=== PATIENT | male | born 1970 | race Caucasian/White ===

== ENCOUNTER 2019-07-30 21:06 | Emergency (ER) | payer OTHER ==
[~2019-07-30] VITALS: Ht 172.7 cm; Wt 90.7 kg
[2019-07-30] MEDS ORDERED: TENORMIN25 MG (21:14)
[2019-07-30] MEDS ORDERED: CLONAZEPAM1 MG (21:14)
== END 2019-07-31 11:59 | disposition home or self-care (01) ==
LOC: ER 21:06 → EDBD 21:38 → ER 21:38
DX: I87.2 Venous insufficiency (chronic) (peripheral) (principal); M79.661 Pain in right lower leg

== ENCOUNTER 2023-08-25 05:45 | Day surgery (SDC) | payer OTHER ==
[2023-08-22 09:52] LABS: HEMATOCRIT 46.1 % (39.0-48.0); HEMOGLOBIN 16.2 g/dL (13-16.00); MEAN CELL VOLUME 87.8 fL (80.0-100.00); MEAN CORPUSCULAR HEMOGLOBIN 30.8 pg (27.00-32.0); PLATELET COUNT 159 K/uL (150-450); RED BLOOD COUNT 5.25 M/uL (4.00-6.00); RED CELL DISTRIBUTION WIDTH 12.8 % (11.5-14.5)
[2023-08-22 10:35] LABS: INR 1.12; PARTIAL THROMBOPLASTIN TIME 26.1 SECONDS (22.0-34.0); PROTHROMBIN TIME 11.7 SECONDS (9.0-11.5)
[2023-08-22 10:51] LABS: ALBUMIN 4.2 gm/dL (3.4-5.0); BILIRUBIN TOTAL 0.82 mg/dL (0.3-1.2); CALCIUM 9.2 mg/dL (8.5-10.1); CREATININE SERUM 0.85 mg/dL (0.70-1.30); GFR 95.03; GLOBULINA 3.2 G/DL (2.4-3.5); POTASSIUM 3.58 mEq/L (3.5-5.1); TOTAL PROTEIN 7.4 gm/dL (6.4-8.2)
[~2023-08-25] VITALS: Ht 172.7 cm; Wt 96.2 kg
[~2023-08-25 05:45] MED LIST: CLONAZEPAM1 MG; TENORMIN25 MG
[2023-08-25] MEDS ORDERED: TRAM1TAB98 PO (08:43)
== END 2023-08-25 10:45 | disposition home or self-care (01) ==
LOC: CIR.AMB 05:45
PROVIDERS: ATTEND Surgery
DX: C20 Malignant neoplasm of rectum (principal); K62.5 Hemorrhage of anus and rectum; Z20.822 Contact with and (suspected) exposure to COVID-19; I10 Essential (primary) hypertension